=== PATIENT | female | born 1940 | race Caucasian/White ===

== ENCOUNTER → 2017-10-04 | Outpatient (CLI) | payer BC ==
[~2017-10-04] MED LIST: ALEN10TA4; ASCA500; GLUCTAB7 PO; MULT-1092 PO; MULTIVITAMIN; NAPR1TAB9; OSTEOBIFLEX; OXYC-57 PO; VITA1TAB4
--- NOTE | 2017-10-04 09:18 | DIAGNOSTIC IMAGING REPORT ---
ABDOMEN LIMITED (US) HISTORY: Pain. Nausea. R10.9. COMPARISON: None. FINDINGS: Pancreas: The pancreas demonstrates a normal echotexture. Liver: Fatty infiltration Gallbladder: Contracted and gallstones as well as sludge filled CBD: 4 mm Right kidney: No hydronephrosis. IMPRESSION: 1. Contracted gallbladder completely filled with multiple small gallstones and sludge 2. Normal caliber bile ducts. 3. Fatty infiltration of the liver The above report was generated using voice recognition software. It may contain grammatical, syntax or spelling errors. Electronically signed by: Lokesh Guzmán M.D. 10/04/2017 9:16 AM Dictated Date/Time: 10/04/2017 9:14 AM
== END | disposition home or self-care (01) ==
LOC: C.ULTR 08:45
PROVIDERS: ATTEND Family Medicine
DX: K80.20 Calculus of gallbladder without cholecystitis without obstruction (principal); K76.0 Fatty (change of) liver, not elsewhere classified

== ENCOUNTER → 2017-10-11 | Outpatient (CLI) | payer BC ==
[~2017-10-11] MED LIST changes: -OXYC-57 PO
== END | disposition home or self-care (01) ==
LOC: C.MAMM 13:16
PROVIDERS: ATTEND Family Medicine
DX: Z13.820 Encounter for screening for osteoporosis (principal)

== ENCOUNTER → 2017-10-16 | Day surgery (SDC) | payer BC ==
[2017-10-12 08:44] VITALS: BMI 37.0
--- NOTE | 2017-10-12 09:17 | PAT Medication Instructions ---
Service Date Oct 12, 2017. Current Home Medication List Alendronate Sodium (Alendronate Sodium), Unknown Dose QAM Djsuawemwck-Cppvvyafhyq-Tob C- (Glucosamine Chondroitin), 1 TAB PO QAM Multiple Vitamins W/ Minerals (Centrum Silver 50+Women), 1 TAB PO QAM Vitamin E (Vitamin E), Unknown Dose QAM Medication Instructions For Your Scheduled Surgery - Hold the following medications as of 10/12/17: Unvvjfljncb-Delrxvszisq-Rki C- (Glucosamine Chondroitin), 1 TAB PO QAM Vitamin E (Vitamin E), Unknown Dose QAM - Hold the following medications the morning of surgery: Multiple Vitamins W/ Minerals (Centrum Silver 50+Women), 1 TAB PO QAM Alendronate Sodium (Alendronate Sodium), Unknown Dose QAM Nothing to eat or drink after midnight If you have any questions please call us at [phone] or [phone] or [phone]
[2017-10-12 10:14] LABS: BASO % 0.4 %; BASO ABS # 0.03 K/uL (0-0.2); EOS % 1.3 %; EOS ABS # 0.11 K/uL (0-0.5); HEMATOCRIT 43.4 % (37-47); HEMOGLOBIN 14.9 g/dL (12.0-16.0); IG# 0.01 K/uL (0.00-0.02); LYMPH % 25.8 %; LYMPH ABS # 2.14 K/uL (1.2-3.4); MEAN CELL VOLUME 97.3 fL (80-100); MEAN CORPUSCULAR HEMOGLOBIN 33.4 pg (25-34); MEAN CORPUSCULAR HGB CONC 34.3 g/dl (32-36); MEAN PLATELET VOLUME 11.4 fL (7.4-10.4); MONO % 7.8 %; MONO ABS # 0.65 K/uL (0.11-0.59); NEUT % 64.6 %; NEUT ABS # 5.36 K/uL (1.4-6.5); PLATELET COUNT 243 K/uL (130-400); RED CELL DISTRIBUTION WIDTH CV 13.5 % (11.5-14.5); RED CELL DISTRIBUTION WIDTH SD 48.3 fL (36.4-46.3)
--- NOTE | 2017-10-12 10:34 | DIAGNOSTIC IMAGING REPORT ---
CHEST 2 VIEWS ROUTINE CLINICAL HISTORY: Preoperative chest COMPARISON STUDY: No previous studies for comparison. FINDINGS: The cardiac and mediastinal contours are normal. There is no evidence of focal pulmonary consolidation. There is no evidence of failure. No pleural effusions are visualized.[ IMPRESSION: Preoperative chest Electronically signed by: Aleksander Marcelo M.D. 10/12/2017 10:33 AM Dictated Date/Time: 10/12/2017 10:22 AM
[2017-10-12 13:12] LABS: ALBUMIN 3.6 gm/dl (3.4-5.0); CALCIUM 9.1 mg/dl (8.5-10.1); CREATININE 0.91 mg/dl (0.60-1.20); POTASSIUM 4.3 mmol/L (3.5-5.1); TOTAL PROTEIN 7.3 gm/dl (6.4-8.2)
[~2017-10-16] VITALS: Ht 160 cm; Wt 94.8 kg
[~2017-10-16] MED LIST changes: +ACETAMINOPHEN 1000 MG/100 ML IV IV ONE; -ASCA500; +ATROPINE SULFATE 0.1 MG/ML 5ML SYR IV PRN; +CEFOXITIN SOD 1 GM VIAL ONE; +CONRAY 60% 50 ML VIAL ONE; +DEXAMETHASONE SOD INJ 4 MG/ML VIAL ONE; +FENTANYL CITRATE INJ 50 MCG/1 ML 2 ML VIAL IV PRN; +FENTANYL CITRATE INJ 50 MCG/1 ML 2 ML VIAL ONE; +GLYCOPYRROLATE INJ 0.2 MG/ML VIAL ONE; +KETOROLAC TROMETHAMINE 30 MG/ML VIAL IV. PRN; +LABETALOL HCL IV 5 MG/ML 20ML IV ONE; +LABETALOL HCL IV 5 MG/ML 20ML IV PRN; +LACTATED RINGER'S 1000ML 1,000 ML IV SCH; +LIDOCAINE HCL 2% 2 ML VIAL (20MG/ML) ONE; +LIDOCAINE/EPINEPHRINE 1% 20 ML VIAL ONE; -MULTIVITAMIN; -NAPR1TAB9; +NEOSTIGMINE METHYLSULFATE 5 MG/5 ML SYR ONE; +ONDANSETRON INJ 2 MG/ML 2 ML VIAL IV PRN; +ONDANSETRON INJ 2 MG/ML 2 ML VIAL ONE; -OSTEOBIFLEX; +OXYC-57 PO; +OXYCODONE/ACETAMINOPHEN 5-325 TAB PO PRN; +PROPOFOL IV EMULSION 10 MG/ML 20 ML VIAL IV ONE; +SODIUM CHLORIDE 0.9% 1000ML 1,000 ML IV SCH
--- NOTE | 2017-10-16 11:07 | History & Physical Bridge Note ---
H&P Re-Evaluation Bridge Note: I have examined the patient, reviewed the History & Physical and in the interval since the performance of the History & Physical I have noted the following changes of clinical significance: No changes noted upset that she has beeen here the whole time and aldo was worried that she did not show up for surgery wants me to call family after surgery
[2017-10-16 11:12] VITALS: BP 166/89; PULSE 80; TEMP 36.6; O2SAT 97; Ht 160 cm; Wt 94.8 kg
--- NOTE | 2017-10-16 11:38 | Discharge Instructions ---
Discharge Instructions Date of Service Oct 16, 2017. Visit Reason for Visit: Cholelithiasis Discharge Discharge Diagnosis / Problem: laparoscopic cholecystectomy Discharge Goals Goal(s): Decrease discomfort Activity Recommendations Activity Limitations: as noted below Lifting Limitations: no more than 10 pounds Shower/Bathe: tomorrow Driving or Machine Use: resume 3 days after discharge Anesthesia . Post Anesthesia Instructions: If you have had General Anesthesia or IV Sedation: * Do not drive today. * Resume driving when surgeon permits. * Do not make important decisions or sign legal documents today. * Call surgeon for: 1. Temperature elevations greater than 101 degrees F. 2. Uncontrollable pain. 3. Excessive bleeding. 4. Persistent nausea and vomiting. 5. Medication intolerance (nausea, vomiting or rash). * For nausea and vomiting use only clear liquids such as: tea, soda, bouillon until nausea subsides, then gradually increase diet as tolerated. * If you have any concerns or questions, call your surgeon's office. If physician is unavailable and it is an emergency, call 911 or go to the nearest emergency room. . Instructions / Follow-Up Instructions / Follow-Up Dr. Marx in 1 week, call [phone] if you do not already have an appt or have any questions Diet Recommendations Recommended Home Diet: no limitations Pending Studies Studies pending at discharge: no Medical Emergencies . Who to Call and When: Medical Emergencies: If at any time you feel your situation is an emergency, please call 911 immediately. . Non-Emergent Contact Non-Emergency issues call your: Surgeon Call Non-Emergent contact if: you have a fever, temperature is above 101.5, your pain is not controlled, wound has increased drainage, wound has increased redness, you have any medication questions . . "Provider Documentation" section prepared by Ammon Su. . [place] Drug Monitoring Program Search Results: no issues identified
--- NOTE | 2017-10-16 13:08 | [facility] Post Operative Brief Note ---
Immediate Operative Summary Operative Date Oct 16, 2017. Pre-Operative Diagnosis Cholelithiasis Post-Operative Diagnosis same as pre-operative Procedure(s) Performed Laparoscopic Cholecystectomy with Cholangiogram Surgeon Dr. Marx Department Store Manager Surgeon(s) SARAY Ness Estimated Blood Loss 10ml Findings gallbladder thick walled and completely filled with cholesterol stones pravin 3 mm size Specimens Specimen A) Gallbladder and Contents Culture 1) Gallbladder contents for culture and sensitivity and anaerobic, anerobic Drains 19 mariela per stab
[2017-10-16 14:05] VITALS: BP 140/67; PULSE 48; TEMP 36.3; O2SAT 99
--- NOTE | 2017-10-16 14:27 | DIAGNOSTIC IMAGING REPORT ---
INTRAOPERATIVE CHOLANGIOGRAM HISTORY: Post cholecystectomy. FLUOROSCOPY TIME: 2 seconds. 2 fluoroscopic spot images. FINDINGS: Fluoroscopy was provided for an intraoperative cholangiogram status post cholecystectomy. Contrast was injected through the cystic duct remnant. The common bile duct is normal in course and caliber. There are no filling defects seen within the common bile duct to suggest a retained stone. Contrast extends into the small bowel. There is no intrahepatic bile duct dilatation. IMPRESSION: Fluoroscopy provided for an intraoperative cholangiogram status post cholecystectomy. No filling defects within the common bile duct. Electronically signed by: Papa Castillo M.D. 10/16/2017 2:26 PM Dictated Date/Time: 10/16/2017 2:25 PM
[2017-10-16 14:35] VITALS: BP 149/71; PULSE 49; TEMP 36.3; O2SAT 99
--- NOTE | 2017-10-16 14:51 | Anesthesiology Progress Note ---
Anesthesia Post Op Note Date & Time Oct 16, 2017 at 14:51 Vital Signs Vital Signs Past 12 Hours Date Time Temp Pulse Resp B/P (MAP) Pulse Ox O2 Delivery O2 Flow Rate FiO2 10/16/17 14:35 36.3 49 16 149/71 99 Room Air 10/16/17 14:05 36.3 48 18 140/67 99 Room Air 10/16/17 14:00 51 18 141/72 99 Room Air 10/16/17 13:50 36.2 54 18 150/69 99 Room Air 10/16/17 13:40 57 16 129/71 97 Room Air 10/16/17 13:30 61 16 129/77 100 Oxymask 3 10/16/17 13:22 36.3 63 16 141/66 97 Oxymask 5 10/16/17 11:12 36.6 80 16 166/89 (114) 97 Room Air Notes Mental Status: alert / awake / arousable, participated in evaluation Pt Amnestic to Procedure: Yes Nausea / Vomiting: adequately controlled Pain: adequately controlled Airway Patency, RR, SpO2: stable & adequate BP & HR: stable & adequate Hydration State: stable & adequate Anesthetic Complications: no major complications apparent
--- NOTE | 2017-10-16 15:00 | OPERATIVE REPORT ---
DATE OF OPERATION: 10/16/2017 PREOPERATIVE DIAGNOSIS: Chronic cholecystitis, cholelithiasis. POSTOPERATIVE DIAGNOSIS: Same with really thick-walled gallbladder completely filled with cholesterol stones, approximately 3 mm in size. PROCEDURE: Laparoscopic cholecystectomy, intraoperative cholangiogram. SURGEON: Dr. Marx. TELEVISION INSPECTOR: Michelle Martinez PA-C. SUMMARY: The patient was brought into the operating room theater. The abdomen was prepped with Betadine scrub and solution after cleaning the umbilical area of a significant probably lint ball. A small incision was made supraumbilically after systemic antibiotics was given and Veress needle was inserted followed by 5 mm trocar. Point of entry inspected and no injury identified. Attention was turned to the right upper quadrant. The right colon was easily appreciated. We did not see the gallbladder at this time. Therefore, a 5 mm epigastric, two 3 mm subcostal ports were inserted with preemptive local analgesia 1% Xylocaine. The gallbladder was identified. It was really thick walled. In fact, 3 mm graspers that we were using in the subcostal and lateral port had a hard time grabbing it and elevating. We were able to maneuver sufficient enough for most of the case. At this point, our dissection was carried out. The patient had some fine adhesions from the gallbladder which as stated was thick-walled to the liver, these were taken down. Down towards the triangle of the area was significantly scarred in. We dissected out the area, we could see what appeared to be a common bile duct below us and we stayed away from that area. There was a structure coming inferiorly which went into the gallbladder, most likely the artery that we were able to divide it after clipped it proximally twice, and once distally. Our attention was turned to the gallbladder. The neck of the gallbladder, there was a stone or multiple stones was we found out later embedded. They were very scarred in, undermining an area and going almost posterior to what appeared to be the common bile duct, but we stayed away, we stayed on the edge of the gallbladder completely freeing it up and then we identified another structure going into the gallbladder area what appeared to be the duct. There was another band anterior to that, we divided clipped first. We got around the duct and were able to clip proximally. A small opening in the duct was made. The duct itself was really thick walled, although the lumen itself was small. We then placed a 4 urethral catheter transversing the abdominal wall and the cystic duct. Serial x-rays were taken which showed free flow into the duodenum. No obstruction. At this point the cholangiocatheter was removed. The cystic duct was doubly clipped with 5 mm clips twice. There was a small artery usually comes in near one of the valves that we cauterized. We would come back later and try to put an Endoloop to this area that were secure through the sense that it was really thick walled although the 5 mm clips were placed with satisfaction. The scar tissue we stayed in the plane very close to the gallbladder leaving as much of the scarred posterior peritoneum intact. Gallbladder was removed intact from the liver. Cautery was used to control the bleeding. At this point, I elected to change the 5 mm epigastric port to an 11 mm due to the thick-walled gallbladder completely filled with stones. I didn't think we could get it out through 5 mm port site. Therefore, we converted to an 11 mm. I also converted prior to doing that, the 3 mm subcostal port with 5 mm to use a larger grasper to work out gallbladder where we took it off the liver. Gallbladder was placed in an Endopouch and taken out intact through the epigastric port after we decompressed it, then took out significant amount of cholesterol stones about 3 mm in size. We also ended up taking cultures of the gallbladder. At this point the subhepatic and suprahepatic area was checked for hemostasis and appeared satisfactory. I placed a camera in the subcostal port to visualize the umbilical opening. There were no adhesions in the area. At this point, the Endoloop was brought into the field and I was able to grab right near where we had placed the previously 5 mm clips, actually they were removed and the Endoloop was placed securely. I also reinforced the area with 10 mm clip. The area appeared to be quite secure as far as the cystic duct was concerned and we were away from the common bile duct. I elected to drain the area with a Geoffrey drain bringing it out medially umbilical area and taken out subcostal ports, placed subhepatically and attached to skin edges with 2-0 silk. Individual trocars removed, last umbilical trocar. I closed the epigastric area with 0 Vicryl suture [id number] x1 and 4-0 Monocryl. Steri-Strips applied. The procedure was tolerated well by the patient and was taken to recovery room in good condition. I attest to the content of the Intraoperative Record and any orders documented therein. Any exceptions are noted below. MTDD
[2017-10-16 15:05] VITALS: BP 155/81; PULSE 53; TEMP 36.3; O2SAT 97
[2017-10-16 16:07] VITALS: BP 182/88; PULSE 61; TEMP 36.4; O2SAT 98
== END | disposition home or self-care (01) ==
LOC: C.ACU 09:14
PROVIDERS: ATTEND Surgery
DX: K80.12 Calculus of gallbladder with acute and chronic cholecystitis without obstruction (principal); M85.80 Other specified disorders of bone density and structure, unspecified site; Z96.659 Presence of unspecified artificial knee joint

== ENCOUNTER → 2018-01-28 | Outpatient (CLI) | payer BC ==
[~2018-01-28] MED LIST changes: -ACETAMINOPHEN 1000 MG/100 ML IV IV ONE; -ATROPINE SULFATE 0.1 MG/ML 5ML SYR IV PRN; -CEFOXITIN SOD 1 GM VIAL ONE; -CONRAY 60% 50 ML VIAL ONE; -DEXAMETHASONE SOD INJ 4 MG/ML VIAL ONE; -FENTANYL CITRATE INJ 50 MCG/1 ML 2 ML VIAL IV PRN; -FENTANYL CITRATE INJ 50 MCG/1 ML 2 ML VIAL ONE; -GLYCOPYRROLATE INJ 0.2 MG/ML VIAL ONE; -KETOROLAC TROMETHAMINE 30 MG/ML VIAL IV. PRN; -LABETALOL HCL IV 5 MG/ML 20ML IV ONE; -LABETALOL HCL IV 5 MG/ML 20ML IV PRN; -LACTATED RINGER'S 1000ML 1,000 ML IV SCH; -LIDOCAINE HCL 2% 2 ML VIAL (20MG/ML) ONE; -LIDOCAINE/EPINEPHRINE 1% 20 ML VIAL ONE; -NEOSTIGMINE METHYLSULFATE 5 MG/5 ML SYR ONE; -ONDANSETRON INJ 2 MG/ML 2 ML VIAL IV PRN; -ONDANSETRON INJ 2 MG/ML 2 ML VIAL ONE; -OXYCODONE/ACETAMINOPHEN 5-325 TAB PO PRN; -PROPOFOL IV EMULSION 10 MG/ML 20 ML VIAL IV ONE; -SODIUM CHLORIDE 0.9% 1000ML 1,000 ML IV SCH
--- NOTE | 2018-01-28 12:53 | DIAGNOSTIC IMAGING REPORT ---
L VENOUS DOPP LOWER EXT UNILAT CLINICAL HISTORY: 77 years-old Female presenting with L LEG SWELLING/CELLULITIS CALF, R/O DVT. TECHNIQUE: Real-time grayscale and color and spectral Doppler ultrasound imaging of the veins of the left lower extremity was performed. Compression and augmentation were also utilized. COMPARISON: None. FINDINGS: Left: Common femoral vein: Patent. Greater saphenous vein: Patent. Deep femoral vein: Patent. Femoral vein: Patent. Popliteal vein: Patent. Calf veins: Limited visualization. Other: None. IMPRESSION: No evidence of deep venous thrombosis. Electronically signed by: Zain Rojas M.D. 01/28/2018 12:52 PM Dictated Date/Time: 01/28/2018 12:52 PM
== END | disposition home or self-care (01) ==
LOC: C.ULTR 12:20
PROVIDERS: ATTEND Student in an Organized Health Care Education/Training Program
DX: L03.116 Cellulitis of left lower limb (principal); M79.89 Other specified soft tissue disorders